=== PATIENT | female | born 1990 | race Two or more races ===

== ENCOUNTER 2018-03-02 01:06 | Inpatient (IN) | payer OTHER, MEDICAID ==
[2018-03-02 02:25] LABS: ADD UMIC YES; UR ASCORBIC ACID NEGATIVE (NEGATIVE); UR BACTERIA FEW /HPF (NONE SEEN); UR BILIRUBIN (Dip) NEGATIVE (NEGATIVE); UR BLOOD (Dip) NEGATIVE (NEGATIVE); UR CLARITY CLEAR (CLEAR); UR COLOR YELLOW (YELLOW); UR GLUCOSE (Dip) NEGATIVE (NEGATIVE); UR KETONES (Dip) TRACE mg/dL (NEGATIVE); UR LEUKOCYTE ESTERASE (Dip) 1+ Leu/ul (NEGATIVE); UR MUCUS FEW /HPF (NONE SEEN); UR NITRITE (Dip) NEGATIVE (NEGATIVE); UR RBC 1 /HPF (0-5); UR SPECIFIC GRAVITY (Dip) 1.018 (1.003-1.030); UR SQUAMOUS EPITHELIAL CELL FEW /HPF (FEW); UR TOTAL PROTEIN (Dip) NEGATIVE (NEGATIVE); UR UROBILINOGEN (Dip) NEGATIVE (NEGATIVE); UR WBC 3 /HPF (0-5)
[2018-03-02] MEDS ORDERED: ONDANSETRON 4 MG INJ IV (02:30)
[2018-03-02] MEDS ORDERED: ACETAMINOPHEN 325 MG TAB PO (02:30)
[2018-03-02 02:41] LABS: ADD MAN DIFF? NO
[2018-03-02 02:44] LABS: WHITE BLOOD COUNT 10.3 10^3/ul (4.8-10.8)
[2018-03-02 02:44] LABS: BASOPHILS % 0.3 % (0.0-2.0); EOSINOPHILS # 0.2 10^3/ul (0.0-0.5); HEMATOCRIT 35.6 % (37.0-47.0); HEMOGLOBIN 11.2 g/dl (12.0-16.0); LYMPHOCYTES # 2.9 10^3/ul (0.8-2.9); LYMPHOCYTES % 28.7 % (15.0-51.0); MEAN CORPUSCULAR HEMOGLOBIN 27.3 pg (29.0-33.0); MEAN CORPUSCULAR HGB CONC 31.5 g/dl (32.0-37.0); MEAN CORPUSCULAR VOLUME 86.8 fl (82.0-101.0); MEAN PLATELET VOLUME 11.1 fl (7.4-10.4); MONOCYTE # 0.6 10^3/ul (0.3-0.9); MONOCYTES % 5.6 % (0.0-11.0); NEUTROPHIL # 6.5 10^3/ul (1.6-7.5); NEUTROPHILS % 62.8 % (39.0-77.0); PLATELET COUNT 193 10^3/UL (140-415); RED CELL DISTRIBUTION WIDTH 13.4 % (11.5-14.5)
[2018-03-02] MEDS: LACTATED RINGER'S 1,000 ML IV ×3 (02:47→10:32)
[2018-03-02 03:02] LABS: INR 0.95; PROTIME 12.8 Sec (11.9-14.9)
[2018-03-02 03:04] LABS: PARTIAL THROMBOPLASTIN TIME 28.9 Sec (23.0-35.0)
[2018-03-02] MEDS: MAGNESIUM SULFATE 4 GM/100 ML 100 ML IVPB (03:11)
[2018-03-02] MEDS ORDERED: GLUCOSE GEL 15 GRAM TUBE BUCCAL (03:30)
[2018-03-02] MEDS ORDERED: DEXTROSE 50% 50 ML SYRINGE IV ×2 (03:30)
[2018-03-02] MEDS ORDERED: GLUCAGON 1 MG INJ IM (03:30)
[2018-03-02] MEDS ORDERED: GLUCOSE GEL 15 GRAM TUBE PO ×2 (03:30)
[2018-03-02] MEDS: MAGNESIUM SULFATE 20 GM/500 ML 500 ML IV ×2 (03:35→11:38)
[2018-03-02] MEDS: BETAMET NA PHOS/AC(6 MG/ML) 5ML INJ IM (03:35)
[2018-03-02 03:54] LABS: ALANINE AMINOTRANSFERASE 20 IU/L (13-69); ALBUMIN 3.5 g/dl (3.3-4.9); ALBUMIN/GLOBULIN RATIO 1.09; ALKALINE PHOSPHATASE 67 IU/L (42-121); ANION GAP 11 (8-16); ASPARTATE AMINO TRANSFERASE 29 IU/L (15-46); BILIRUBIN,INDIRECT 0.1 mg/dl (0-1.1); BILIRUBIN,TOTAL 0.1 mg/dl (0.2-1.3); BLOOD UREA NITROGEN 9 mg/dl (7-20); CALCIUM 8.8 mg/dl (8.4-10.2); CARBON DIOXIDE 25 mmol/L (21-31); CHLORIDE 107 mmol/L (97-110); CREATININE 0.38 mg/dl (0.44-1.00); GLUCOSE 102 mg/dl (70-220); POTASSIUM 3.9 mmol/L (3.5-5.1); SODIUM 139 mmol/L (135-144); TOTAL PROTEIN 6.7 g/dl (6.1-8.1)
[2018-03-02] MEDS: AMPICILLIN 2 GM/NS (PMX) 100 ML IVPB ×2 (05:55→11:34)
[2018-03-02 07:28] LABS: MAGNESIUM 4.6 mg/dl (1.7-2.5)
[2018-03-02] MEDS ORDERED: glyBURIDE 2.5 MG TAB PO ×2 (08:05→18:05)
[2018-03-02] MEDS: ACCU-CHEK XX ×7 (08:12→21:41)
[2018-03-02] MEDS: PRENATAL VITAMIN PO (09:10)
[2018-03-02] MEDS: glyBURIDE 5 MG TAB PO (09:12)
[2018-03-02] MEDS: FERROUS SULFATE (EC) 325 MG TAB PO (09:13)
[2018-03-02] MEDS: INSULIN ASPART [NOVOLOG] 3 ML PEN SC ×3 (13:13→21:00)
[2018-03-02 13:31] LABS: MAGNESIUM 5.5 mg/dl (1.7-2.5)
[2018-03-02] MEDS: metFORMIN 500 MG TAB PO (17:54)
[2018-03-02] MEDS ORDERED: glyBURIDE 5 MG TAB PO (18:05)
[2018-03-02 20:11] LABS: MAGNESIUM 5.4 mg/dl (1.7-2.5)
[2018-03-03] MEDS: LACTATED RINGER'S 1,000 ML IV (00:20)
[2018-03-03] MEDS: MAGNESIUM SULFATE 20 GM/500 ML 500 ML IV (00:25)
[2018-03-03 01:23] LABS: MAGNESIUM 4.5 mg/dl (1.7-2.5)
[2018-03-03] MEDS: BETAMET NA PHOS/AC(6 MG/ML) 5ML INJ IM (03:24)
[2018-03-03 07:16] LABS: MAGNESIUM 4.5 mg/dl (1.7-2.5)
[2018-03-03] MEDS: ACCU-CHEK XX ×8 (08:01→21:00)
[2018-03-03] MEDS: FERROUS SULFATE (EC) 325 MG TAB PO (08:40)
[2018-03-03] MEDS: PRENATAL VITAMIN PO (08:40)
[2018-03-03] MEDS: metFORMIN 500 MG TAB PO ×2 (08:41→17:48)
[2018-03-03] MEDS: INSULIN ASPART [NOVOLOG] 3 ML PEN SC ×4 (08:42→20:50)
[2018-03-03] MEDS: AL HYDROX/MG HYDROX/SIMETH 30 ML CUP PO (11:04)
[2018-03-03] MEDS: BISACODYL 10 MG SUPP PR (19:52)
[2018-03-04] MEDS: INSULIN ASPART [NOVOLOG] 3 ML PEN SC (07:35)
[2018-03-04] MEDS: ACCU-CHEK XX ×3 (08:04→10:37)
[2018-03-04] MEDS: FERROUS SULFATE (EC) 325 MG TAB PO (08:26)
[2018-03-04] MEDS: PRENATAL VITAMIN PO (08:26)
[2018-03-04] MEDS: metFORMIN 500 MG TAB PO (08:26)
== END 2018-03-04 10:45 | disposition home or self-care (01) | DRG 833 ==
LOC: OBT 01:06 → L-D 01:08 → OBT 02:00 → L-D 02:00 → PP1 04:23
DX: O60.03 Preterm labor without delivery, third trimester (principal); O24.415 Gestational diabetes mellitus in pregnancy, controlled by oral hypoglycemic drugs; O09.213 Supervision of pregnancy with history of pre-term labor, third trimester; Z3A.30 30 weeks gestation of pregnancy
CPT/HCPCS: 76815; 76817; 76818; 80053; 81001; 82962; 83735; 85025; 85610; 85730; 86850; 86900; 86901

== ENCOUNTER 2018-04-11 05:25 | Emergency (ER) | payer OTHER ==
[2018-04-11] MEDS: ACETAMINOPHEN 500 MG TAB PO (06:29)
== END 2018-04-11 06:34 | disposition home or self-care (01) ==
LOC: FTE 05:25
DX: O99.513 Diseases of the respiratory system complicating pregnancy, third trimester (principal); J02.9 Acute pharyngitis, unspecified; Z3A.35 35 weeks gestation of pregnancy
CPT/HCPCS: 99282; Z7502

== ENCOUNTER 2018-04-26 16:44 | Outpatient (CLI) | payer OTHER | END 2018-04-26 19:10 | disposition home or self-care (01) | LOC: OBT 16:44 → L-D 16:45 → OBT 19:10 | DX: O36.8130 Decreased fetal movements, third trimester, not applicable or unspecified (principal); Z3A.36 36 weeks gestation of pregnancy | CPT/HCPCS: 76818; 82962 ==

== ENCOUNTER 2018-04-30 10:42 | Outpatient (CLI) | payer OTHER ==
[2018-04-30] MEDS: LACTATED RINGER'S 1,000 ML IV* (11:30)
[2018-04-30 11:32] LABS: ADD UMIC NO; UR ASCORBIC ACID NEGATIVE (NEGATIVE); UR BILIRUBIN (Dip) NEGATIVE (NEGATIVE); UR BLOOD (Dip) NEGATIVE (NEGATIVE); UR CLARITY CLEAR (CLEAR); UR COLOR STRAW (YELLOW); UR GLUCOSE (Dip) 1+ mg/dL (NEGATIVE); UR KETONES (Dip) NEGATIVE (NEGATIVE); UR LEUKOCYTE ESTERASE (Dip) NEGATIVE Leu/ul (NEGATIVE); UR NITRITE (Dip) NEGATIVE (NEGATIVE); UR SPECIFIC GRAVITY (Dip) 1.006 (1.003-1.030); UR TOTAL PROTEIN (Dip) NEGATIVE (NEGATIVE); UR UROBILINOGEN (Dip) NEGATIVE (NEGATIVE)
[2018-04-30 11:38] LABS: ADD MAN DIFF? NO
[2018-04-30 11:41] LABS: WHITE BLOOD COUNT 7.4 10^3/ul (4.8-10.8)
[2018-04-30 11:41] LABS: BASOPHILS % 0.4 % (0.0-2.0); EOSINOPHILS # 0.1 10^3/ul (0.0-0.5); EOSINOPHILS % 1.2 % (0.0-7.0); HEMATOCRIT 36.7 % (37.0-47.0); HEMOGLOBIN 11.8 g/dl (12.0-16.0); LYMPHOCYTES # 2.4 10^3/ul (0.8-2.9); LYMPHOCYTES % 31.8 % (15.0-51.0); MEAN CORPUSCULAR HEMOGLOBIN 27.3 pg (29.0-33.0); MEAN CORPUSCULAR HGB CONC 32.2 g/dl (32.0-37.0); MEAN CORPUSCULAR VOLUME 84.8 fl (82.0-101.0); MEAN PLATELET VOLUME 11.5 fl (7.4-10.4); MONOCYTE # 0.5 10^3/ul (0.3-0.9); MONOCYTES % 6.6 % (0.0-11.0); NEUTROPHIL # 4.4 10^3/ul (1.6-7.5); NEUTROPHILS % 59.5 % (39.0-77.0); PLATELET COUNT 189 10^3/UL (140-415); RED BLOOD COUNT 4.33 10^6/ul (4.20-5.40); RED CELL DISTRIBUTION WIDTH 13.2 % (11.5-14.5)
== END 2018-04-30 13:04 | disposition home or self-care (01) ==
LOC: OBT 10:42 → L-D 10:42 → OBT 13:04
DX: O62.9 Abnormality of forces of labor, unspecified (principal); Z3A.36 36 weeks gestation of pregnancy
CPT/HCPCS: 36415; 76818; 81003; 85025; 93005; 96360

== ENCOUNTER 2018-05-03 15:05 | Outpatient (CLI) | payer OTHER | END 2018-05-03 17:45 | disposition home or self-care (01) | LOC: OBT 15:05 → L-D 15:05 → OBT 17:45 | DX: O62.9 Abnormality of forces of labor, unspecified (principal); Z3A.37 37 weeks gestation of pregnancy | CPT/HCPCS: Z7500 ==

== ENCOUNTER 2018-05-04 12:14 | Outpatient (CLI) | payer OTHER | END 2018-05-04 14:36 | disposition home or self-care (01) | LOC: OBT 12:14 → L-D 12:17 → OBT 14:36 | DX: O24.410 Gestational diabetes mellitus in pregnancy, diet controlled (principal); Z3A.38 38 weeks gestation of pregnancy | CPT/HCPCS: 76818; 82962 ==

== ENCOUNTER 2018-05-06 12:20 | Outpatient (CLI) | payer OTHER | END 2018-05-06 15:20 | disposition home or self-care (01) | LOC: OBT 12:20 → L-D 12:20 → OBT 15:20 | DX: O24.419 Gestational diabetes mellitus in pregnancy, unspecified control (principal); Z3A.38 38 weeks gestation of pregnancy | CPT/HCPCS: 76818 ==

== ENCOUNTER 2018-05-10 18:27 | Inpatient (IN) | payer OTHER ==
[2018-05-10] MEDS ORDERED: CEFAZOLIN 2 GM/50 ML (PMX) 50 ML IVPB (20:00)
[2018-05-10] MEDS ORDERED: CARBOPROST 250 MCG INJ IM (20:00)
[2018-05-10] MEDS ORDERED: OXYTOCIN 30 UNITS/LR 500 ML IV ×2 (20:00)
[2018-05-10] MEDS ORDERED: METHYLERGONOVINE 0.2 MG INJ IM (20:00)
[2018-05-10] MEDS ORDERED: MISOPROSTOL 200 MCG TAB PR (20:00)
[2018-05-10 20:08] LABS: ADD MAN DIFF? NO
[2018-05-10 20:09] LABS: WHITE BLOOD COUNT 8.1 10^3/ul (4.8-10.8)
[2018-05-10 20:09] LABS: BASOPHILS % 0.4 % (0.0-2.0); EOSINOPHILS # 0.1 10^3/ul (0.0-0.5); EOSINOPHILS % 1.2 % (0.0-7.0); HEMATOCRIT 36.5 % (37.0-47.0); HEMOGLOBIN 11.8 g/dl (12.0-16.0); LYMPHOCYTES # 2.8 10^3/ul (0.8-2.9); LYMPHOCYTES % 35.1 % (15.0-51.0); MEAN CORPUSCULAR HEMOGLOBIN 26.9 pg (29.0-33.0); MEAN CORPUSCULAR HGB CONC 32.3 g/dl (32.0-37.0); MEAN CORPUSCULAR VOLUME 83.1 fl (82.0-101.0); MEAN PLATELET VOLUME 12.1 fl (7.4-10.4); MONOCYTE # 0.6 10^3/ul (0.3-0.9); MONOCYTES % 7.2 % (0.0-11.0); NEUTROPHIL # 4.5 10^3/ul (1.6-7.5); NEUTROPHILS % 55.7 % (39.0-77.0); PLATELET COUNT 162 10^3/UL (140-415); RED BLOOD COUNT 4.39 10^6/ul (4.20-5.40); RED CELL DISTRIBUTION WIDTH 13.1 % (11.5-14.5)
[2018-05-10 20:27] LABS: INR 0.89; PROTIME 12.1 Sec (11.9-14.9); PT RATIO 0.9
[2018-05-10 20:28] LABS: PARTIAL THROMBOPLASTIN TIME 27.8 Sec (23.0-35.0)
[2018-05-10 20:36] LABS: ADD UMIC YES; UR ASCORBIC ACID NEGATIVE (NEGATIVE); UR BACTERIA FEW /HPF (NONE SEEN); UR BILIRUBIN (Dip) NEGATIVE (NEGATIVE); UR BLOOD (Dip) NEGATIVE (NEGATIVE); UR CLARITY CLOUDY (CLEAR); UR COLOR YELLOW (YELLOW); UR GLUCOSE (Dip) NEGATIVE (NEGATIVE); UR KETONES (Dip) NEGATIVE (NEGATIVE); UR LEUKOCYTE ESTERASE (Dip) 3+ Leu/ul (NEGATIVE); UR MUCUS FEW /HPF (NONE SEEN); UR NITRITE (Dip) NEGATIVE (NEGATIVE); UR RBC 4 /HPF (0-5); UR SPECIFIC GRAVITY (Dip) 1.023 (1.003-1.030); UR SQUAMOUS EPITHELIAL CELL MANY /HPF (FEW); UR TOTAL PROTEIN (Dip) NEGATIVE (NEGATIVE); UR UROBILINOGEN (Dip) NEGATIVE (NEGATIVE); UR WBC 50 /HPF (0-5)
[2018-05-10] MEDS ORDERED: morphine SULFATE/PF (10 MG/10 ML) INJ (22:51)
[2018-05-10] MEDS ORDERED: METOCLOPRAMIDE 10 MG INJ (22:51)
[2018-05-10] MEDS ORDERED: ONDANSETRON 4 MG INJ (22:51)
[2018-05-10] MEDS ORDERED: KETOROLAC 30 MG INJ (22:54)
[2018-05-10] MEDS ORDERED: BUPIVACAINE 0.75%/DEXT (SPINAL) 2 ML INJ (23:11)
[2018-05-10] MEDS ORDERED: PHENYLephrine (100 MCG/ML) 5ML SYG (23:14)
[2018-05-10] MEDS ORDERED: CEFAZOLIN 1 GM INJ (23:54)
[2018-05-11] MEDS ORDERED: OXYTOCIN 30 UNITS/LR 500 ML IV ×2 (00:19→01:00)
[2018-05-11] MEDS ORDERED: morphine (1 MG/ML) 10ML SYRINGE IV ×3 (00:30)
[2018-05-11] MEDS ORDERED: DIPHENHYDRAMINE 50 MG INJ IV ×2 (00:30)
[2018-05-11] MEDS ORDERED: morphine 2 MG INJ IV ×3 (00:30)
[2018-05-11] MEDS ORDERED: NALOXONE (0.4 MG/ML) INJ IV (00:30)
[2018-05-11] MEDS ORDERED: DEXTROSE 5%-LR 1,000 ML IV (00:31)
[2018-05-11] MEDS ORDERED: CARBOPROST 250 MCG INJ IM (01:00)
[2018-05-11] MEDS ORDERED: MISOPROSTOL 200 MCG TAB PR (01:00)
[2018-05-11] MEDS ORDERED: LANOLIN HPA 1 PKT TOP (01:00)
[2018-05-11] MEDS ORDERED: METHYLERGONOVINE 0.2 MG TAB PO (01:00)
[2018-05-11] MEDS ORDERED: METHYLERGONOVINE 0.2 MG INJ IM (01:00)
[2018-05-11] MEDS: ONDANSETRON 4 MG INJ IV (02:30)
[2018-05-11] MEDS: OXYTOCIN 30 UNITS/LR 500 ML IV (02:32)
[2018-05-11] MEDS: KETOROLAC 30 MG INJ IV ×2 (03:15→22:17)
[2018-05-11] MEDS: LACTATED RINGER'S 1,000 ML IV ×3 (03:35→09:20)
[2018-05-11] MEDS: SENNA/DOCUSATE NA (8.6MG/50MG) TAB PO ×2 (09:20→20:53)
[2018-05-11 15:44] LABS: RAPID PLASMA REAGIN NONREACTIVE (NR)
[2018-05-12] MEDS: IBUPROFEN 800 MG TAB PO ×3 (05:34→21:42)
[2018-05-12 09:03] LABS: ADD MAN DIFF? NO
[2018-05-12] MEDS: SENNA/DOCUSATE NA (8.6MG/50MG) TAB PO ×2 (09:03→21:41)
[2018-05-12 09:06] LABS: WHITE BLOOD COUNT 8.3 10^3/ul (4.8-10.8)
[2018-05-12 09:06] LABS: BASOPHIL # 0.1 10^3/ul (0.0-0.1); BASOPHILS % 0.6 % (0.0-2.0); EOSINOPHILS # 0.1 10^3/ul (0.0-0.5); EOSINOPHILS % 1.3 % (0.0-7.0); HEMATOCRIT 32.7 % (37.0-47.0); HEMOGLOBIN 10.2 g/dl (12.0-16.0); LYMPHOCYTES # 2.6 10^3/ul (0.8-2.9); LYMPHOCYTES % 31.6 % (15.0-51.0); MEAN CORPUSCULAR HEMOGLOBIN 26.5 pg (29.0-33.0); MEAN CORPUSCULAR HGB CONC 31.2 g/dl (32.0-37.0); MEAN CORPUSCULAR VOLUME 84.9 fl (82.0-101.0); MEAN PLATELET VOLUME 12.6 fl (7.4-10.4); MONOCYTE # 0.7 10^3/ul (0.3-0.9); MONOCYTES % 8.3 % (0.0-11.0); NEUTROPHIL # 4.8 10^3/ul (1.6-7.5); NEUTROPHILS % 57.8 % (39.0-77.0); PLATELET COUNT 159 10^3/UL (140-415); RED BLOOD COUNT 3.85 10^6/ul (4.20-5.40); RED CELL DISTRIBUTION WIDTH 13.2 % (11.5-14.5)
[2018-05-12] MEDS ORDERED: HYDROCODONE/APAP (5/325) TAB PO (11:00)
[2018-05-12] MEDS ORDERED: DIPHTH/TET/ACEL PERTUSS (ADULT) 0.5 ML VIAL IM* (11:00)
[2018-05-12] MEDS: HYDROCODONE/APAP (5/325) TAB PO ×2 (14:29→21:41)
[2018-05-12] MEDS: MAGNESIUM HYDROXIDE 30ML CUP PO (23:42)
[2018-05-13] MEDS: IBUPROFEN 800 MG TAB PO ×2 (05:46→13:43)
[2018-05-13] MEDS: HYDROCODONE/APAP (5/325) TAB PO ×2 (05:46→13:44)
[2018-05-13] MEDS: SENNA/DOCUSATE NA (8.6MG/50MG) TAB PO (09:00)
[2018-05-13 13:53] LABS: ALANINE AMINOTRANSFERASE 12 IU/L (13-69); ALBUMIN 2.9 g/dl (3.3-4.9); ALBUMIN/GLOBULIN RATIO 0.96; ALKALINE PHOSPHATASE 93 IU/L (42-121); ANION GAP 7 (5-13); ASPARTATE AMINO TRANSFERASE 23 IU/L (15-46); BILIRUBIN,INDIRECT 0.2 mg/dl (0-1.1); BILIRUBIN,TOTAL 0.2 mg/dl (0.2-1.3); BLOOD UREA NITROGEN 8 mg/dl (7-20); CALCIUM 8.9 mg/dl (8.4-10.2); CARBON DIOXIDE 29 mmol/L (21-31); CHLORIDE 105 mmol/L (97-110); CREATININE 0.45 mg/dl (0.44-1.00); Estimated GFR > 60 mL/min (>60); GLUCOSE 96 mg/dl (70-220); POTASSIUM 4.1 mmol/L (3.5-5.1); SODIUM 141 mmol/L (135-144); TOTAL PROTEIN 5.9 g/dl (6.1-8.1)
[2018-05-14] MEDS ORDERED: DIPHTH/TET/ACEL PERTUSS (ADULT) 0.5 ML VIAL IM* (09:00)
[2018-05-14] MEDS ORDERED: MEASLES,MUMPS,RUBELLA VACCINE INJ SC* (09:00)
== END 2018-05-13 17:30 | disposition home or self-care (01) | DRG 788 ==
LOC: OBT 18:27 → L-D 05-11 00:28 → PP1 05-11 03:07 → OBT 19:45 → L-D 19:45
PROC: 10D00Z1 Extraction of Products of Conception, Low, Open Approach (ICD-10-PCS; principal; 2018-05-11)
DX: O24.425 Gestational diabetes mellitus in childbirth, controlled by oral hypoglycemic drugs (principal); G89.18 Other acute postprocedural pain; Z3A.38 38 weeks gestation of pregnancy; Z37.0 Single live birth; Z87.59 Personal history of other complications of pregnancy, childbirth and the puerperium
CPT/HCPCS: 80053; 81001; 82962; 85025; 85610; 85730; 86592; 86850; 86900; 86901; 99464

== ENCOUNTER 2018-09-02 11:38 | Emergency (ER) | payer OTHER ==
[2018-09-02 12:41] LABS: ADD MAN DIFF? NO
[2018-09-02] MEDS: KETOROLAC 30 MG INJ IM (12:47)
[2018-09-02 12:50] LABS: WHITE BLOOD COUNT 6.2 10^3/ul (4.8-10.8)
[2018-09-02 12:50] LABS: BASOPHILS % 0.6 % (0.0-2.0); EOSINOPHILS # 0.1 10^3/ul (0.0-0.5); EOSINOPHILS % 2.1 % (0.0-7.0); HEMOGLOBIN 12.2 g/dl (12.0-16.0); LYMPHOCYTES # 2.6 10^3/ul (0.8-2.9); LYMPHOCYTES % 42.4 % (15.0-51.0); MEAN CORPUSCULAR HEMOGLOBIN 26.4 pg (29.0-33.0); MEAN CORPUSCULAR HGB CONC 31.3 g/dl (32.0-37.0); MEAN CORPUSCULAR VOLUME 84.4 fl (82.0-101.0); MEAN PLATELET VOLUME 11.2 fl (7.4-10.4); MONOCYTE # 0.3 10^3/ul (0.3-0.9); MONOCYTES % 5.5 % (0.0-11.0); NEUTROPHILS % 49.1 % (39.0-77.0); PLATELET COUNT 231 10^3/UL (140-415); RED BLOOD COUNT 4.62 10^6/ul (4.20-5.40); RED CELL DISTRIBUTION WIDTH 13.6 % (11.5-14.5)
[2018-09-02 13:14] LABS: ALANINE AMINOTRANSFERASE 19 IU/L (13-69); ALBUMIN 4.8 g/dl (3.3-4.9); ALBUMIN/GLOBULIN RATIO 1.29; ALKALINE PHOSPHATASE 66 IU/L (42-121); ANION GAP 9 (5-13); ASPARTATE AMINO TRANSFERASE 21 IU/L (15-46); BILIRUBIN,INDIRECT 0.3 mg/dl (0-1.1); BILIRUBIN,TOTAL 0.3 mg/dl (0.2-1.3); BLOOD UREA NITROGEN 15 mg/dl (7-20); CALCIUM 9.7 mg/dl (8.4-10.2); CARBON DIOXIDE 28 mmol/L (21-31); CHLORIDE 105 mmol/L (97-110); CREATININE 0.61 mg/dl (0.44-1.00); Estimated GFR > 60 mL/min (>60); GLUCOSE 90 mg/dl (70-220); POTASSIUM 4.4 mmol/L (3.5-5.1); SODIUM 142 mmol/L (135-144); TOTAL PROTEIN 8.5 g/dl (6.1-8.1)
[2018-09-02 14:20] LABS: THYROID STIMULATING HORMONE 0.794 MIU/L (0.465-4.680)
== END 2018-09-02 15:00 | disposition home or self-care (01) ==
LOC: FTE 11:38
DX: R51 Headache (principal); R53.1 Weakness
CPT/HCPCS: 80053; 81025; 84443; 85025; 96372; 99284-25

== ENCOUNTER 2018-10-21 04:21 | Emergency (ER) | payer OTHER | END 2018-10-21 05:57 | disposition home or self-care (01) | LOC: FTE 04:21 | DX: J02.9 Acute pharyngitis, unspecified (principal) | CPT/HCPCS: 99282; Z7502 ==

== ENCOUNTER 2018-10-28 14:12 | Emergency (ER) | payer OTHER | END 2018-10-28 16:07 | disposition home or self-care (01) | LOC: FTE 16:07 | DX: J06.9 Acute upper respiratory infection, unspecified (principal); E11.9 Type 2 diabetes mellitus without complications; Z79.84 Long term (current) use of oral hypoglycemic drugs | CPT/HCPCS: 99283; Z7502 ==

== ENCOUNTER 2019-02-15 19:37 | Emergency (ER) | payer OTHER | END 2019-02-15 20:50 | disposition home or self-care (01) | LOC: FTE 19:37 | DX: K12.0 Recurrent oral aphthae (principal); E11.9 Type 2 diabetes mellitus without complications; Z79.84 Long term (current) use of oral hypoglycemic drugs | CPT/HCPCS: 99283; Z7502 ==